=== PATIENT | female | born 2000 | race African-American/Black ===

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

== ENCOUNTER 2022-12-15 21:12 | Emergency (ER) | payer MEDICAID, OTHER ==
[~2022-12-15] VITALS: Ht 154.9 cm; Wt 54.0 kg
[2022-12-15 21:21] VITALS: BP 117/79; TEMP 97.9; O2SAT 100
[2022-12-15 21:25] VITALS: PULSE 80; RESP 16
== END 2022-12-16 00:29 | disposition left against medical advice (07) ==
LOC: ER 21:12
DX: Z53.21 Procedure and treatment not carried out due to patient leaving prior to being seen by health care provider (principal)
CPT/HCPCS: 99281